=== PATIENT | male | born 1945 | race Caucasian/White ===

== ENCOUNTER → 2018-08-14 08:02 | Outpatient (CLI) | payer MEDICARE, SELFPAY ==
--- NOTE | 2018-08-14 08:30 | US_ITS ---
US abdomen limited History:Abdominal pain, epigastric pain with nausea Ordering Physician:Luis Scruggs MD Patient Age: 73 years Comparison:None Findings: Pancreas:Unremarkable. No obvious mass or abnormal fluid collection. No ductal dilatation Liver:There is a small hepatic cyst at 12 mm involving the central aspect of the liver. Right Kidney:Unremarkable. Normal size and echogenicity. No hydronephrosis Gallbladder: There is a small amount sludge within the gallbladder along with a a 2 mm polyp along the anterior wall . No shadowing stones. No gallbladder wall thickening, pericholecystic fluid, or ductal dilatation. Common bile duct is normal at 3 mm. IMPRESSION: 1. Small amount sludge and small 2 mm gallbladder wall polyp. No gallstones or gallbladder wall thickening. 2. Small hepatic cyst
--- NOTE | 2018-08-14 09:00 | FL_ITS ---
FL upper GI w air HISTORY: Pain and swelling of the stomach with nausea ITS.REASON: UPPER ABD PAIN ORDERING PHYSICIAN: Luis Scruggs MD PATIENT AGE: 73 years Comparison: None FINDINGS: The esophagus, stomach, and duodenum have an unremarkable appearance. There is no evidence of hiatal hernia. No ulcer or mass evident. No mucosal abnormalities apparent. There is normal peristalsis. The duodenal C-loop is nondisplaced. There was a mild amount of GE reflux noted during the exam FLUOROSCOPY TIME : 1 minute and 29 seconds. IMPRESSION: Mild gastroesophageal reflux otherwise negative upper GI
== END ==
PROVIDERS: PCP Family Medicine; Visit Provider Family Medicine
DX: R10.10 Upper abdominal pain, unspecified (principal)
CPT/HCPCS: 74247; 76705

== ENCOUNTER 2021-06-18 09:14 | Emergency (ER) | payer MEDICARE, SELFPAY ==
[2021-06-18 10:22] VITALS: BP 150/79; PULSE 75; RESP 14; TEMP 37; O2SAT 98; BMI 20.7
--- NOTE | 2021-06-18 10:43 | HMH.EDUTC ---
[facility] [place] Clinical Impression: Bronchitis Sinusitis Qualifiers: Sinusitis location: unspecified location Chronicity: acute Recurrence: non-recurrent Qualified Code(s): J01.90 - Acute sinusitis, unspecified Disposition: Home, Self-Care Condition on Discharge: Good Instructions: DI for Sinusitis, DI for Acute Bronchitis Additional Instructions: Drink plenty of fluids. Take tylenol or ibuprofen for pain or fever. Take the medications as directed. Follow up with your regular doctor. GO TO THE ER FOR ANY WORSENING SYMPTOMS Prescriptions: Benzonatate [Benzonatate 100mg cap] 100 mg PO TIDP PRN #30 cap PRN Reason: Cough Transmission Status: Received by [facility] # guaiFENesin [Mucinex 600mg tablet] 1 - 2 tab PO BIDP PRN #30 tab PRN Reason: Congestion Transmission Status: Received by [facility] # predniSONE [Prednisone 20mg Tab] 20 mg PO BID 3 Days #6 tab Transmission Status: Received by [facility] # Azithromycin [Z-Jasen 250mg Tab*] 250 mg PO UD DOSE PK #6 tab Transmission Status: Received by [facility] # Referrals: Luis Scruggs MD [Primary Care Provider] - Time of Disposition: 10:50 Medical Decision Making - Medical Records Medical records reviewed: No: I reviewed the patient's medical records. - Jaime Inquiry Pt receiving controlled substance: No Vital Signs: 06/18/21 10:22 06/18/21 11:04 Temperature 98.6 F 98.6 F Temperature Source Oral Pulse Rate 75 Pulse Rate [Left] 75 Respiratory Rate 14 14 Blood Pressure 150/79 H Blood Pressure [Right Arm] 150/79 H Blood Pressure Mean [Right Arm] 102 02 Sat by Pulse Oximetry 98 [facility] [place] - General Stated complaint: sore throat Time Seen by Provider: 06/18/21 10:43 Mode of Arrival: Ambulatory Source of Information: Patient Limitations: No Limitations Description of Symptoms (Recalled from Triage Doc. by RN): pt c/o congestion, JEREZ, and cough x3 days. HEENT Symptoms (Recalled from RN notes): Yes (congestion and JEREZ) Resp Symptoms (Recalled from RN notes): Yes (cough) Skin Symptoms (Recalled from RN notes): No MS Symptoms (Recalled from RN notes): No Functional Status (Recalled from RN notes): wnl - History of Present Illness Provider Complaint: He c/o cough and sinus congestion for the past 3 days. - Related Data Home Medications Medication Instructions Recorded Confirmed Aspirin 81 mg PO DAILY 02/17/18 02/17/18 Atorvastatin Calcium [Lipitor 10mg 5 mg PO DAILY 02/17/18 02/17/18 Tab] Previous Rx's Medication Instructions Recorded Azithromycin [Z-Jasen 250mg Tab*] 250 mg PO UD DOSE PK #6 tab 06/18/21 Benzonatate [Benzonatate 100mg 100 mg PO TIDP PRN #30 cap 06/18/21 cap] guaiFENesin [Mucinex 600mg tablet] 1 - 2 tab PO BIDP PRN #30 tab 06/18/21 predniSONE [Prednisone 20mg 20 mg PO BID 3 Days #6 tab 06/18/21 Tab] Allergies Allergy/AdvReac Type Severity Reaction Status Date / Time No Known Allergies Allergy Verified 02/17/18 15:45 - Worker's Comp Is this a Worker's Comp case?: No [facility] History - Hepatitis A Screen Drug use history?: No High risk sexual behaviors?: No History of sexually transmitted infection?: No Currently employed?: No Childcare worker?: No Do you have indoor plumbing?: Yes Do you have electricity?: Yes Attestation statement:: This patient has been screened for Hepatitis A risk factors. I have reviewed the patient's past medical history: Yes ROS Obtained: Yes All systems reviewed & no additional complaints - Constitutional Constitutional: Denies chills, Denies fever(s) - Eyes Eyes: Denies eye discharge - ENT Ears, Nose, Mouth, and Throat: Denies dizziness, Denies otalgia, Reports nasal congestion, Reports nasal discharge, Reports sore throat - Cardiovascular Cardiovascular: Denies chest pain - Respiratory Respiratory: Reports chest congestion, Reports cough, Denies dyspnea,
[2021-06-18 11:04] VITALS: BP 150/79; PULSE 75; RESP 14; TEMP 37
== END 2021-06-18 11:06 | disposition home or self-care (01) ==
PROVIDERS: Emergency Provider Nurse Practitioner Family; PCP Family Medicine
DX: J20.9 Acute bronchitis, unspecified (principal); J01.90 Acute sinusitis, unspecified
CPT/HCPCS: G0463; 99202

== ENCOUNTER → 2023-03-07 08:20 | Outpatient (POV) | payer MEDICARE, SELFPAY | PROVIDERS: Visit Provider Dermatology | DX: Z00.00 Encounter for general adult medical examination without abnormal findings (principal) ==

== ENCOUNTER 2023-10-13 19:21 | Emergency (ER) | payer MEDICARE, SELFPAY ==
[2023-10-13 19:25] VITALS: BP 140/83; PULSE 69; RESP 19; O2SAT 98; BMI 19.9
--- NOTE | 2023-10-13 19:32 | ED_ITS ---
Discharge Plan Disposition Patient Disposition: Home, Self-Care Condition: Good Prescriptions Prescriptions: New cephalexin 500 mg capsule 500 mg PO Q8H 10 Days Qty: 30 0RF No Action atorvastatin 10 MG tablet 5 mg PO DAILY aspirin 81 MG tablet,chewable 81 mg PO DAILY azithromycin 250 MG tablet 250 mg PO UD DOSE PK Qty: 6 0RF Rx Instructions: Take two (2) tablets today, then one (1) tablet days #2 thru #5 benzonatate 100 MG capsule 100 mg PO TIDP PRN (Reason: Cough) Qty: 30 0RF guaifenesin 600 MG tablet extended release 12hr 1 - 2 tab PO BIDP PRN (Reason: Congestion) Qty: 30 0RF prednisone 20 MG tablet 20 mg PO BID 3 Days Qty: 6 0RF Referrals Follow up/Referrals: Luis Scruggs MD [Primary Care Provider] - See instructions Clinical Impressions Clinical Impression: Puncture wound of hand, left, Skin tear of left hand without complication, On group home clopidogrel therapy Instructions Patient Instructions: DI for Laceration Repair-Skin Closure Strips Discharge ED Provider: Anabel Rodriguez [facility] [place] HPI General Stated complaint: AO 10/13/23 1730 Puncture to left hand Time Seen by Provider: 10/13/23 19:32 History of Present Illness Provider Complaint: Puncture wound to left hand a few hours [employer]. On Plavix and continues to ooze. Unsure of last tetanus shot. Onset (ago): hour(s) (3) Location: left and upper extremity Relieving factors: none Exacerbating factors: none Associated symptoms: denies other symptoms Treatments prior to arrival: other (pressure) Related Data Home Medications Medication Instructions Recorded Confirmed aspirin 81 mg chewable tablet 81 mg PO DAILY heart health 02/17/18 02/17/18 atorvastatin 10 mg tablet 5 mg PO DAILY Cholesterol 02/17/18 02/17/18 Previous Rx's Medication Instructions Recorded azithromycin 250 mg tablet 250 mg PO UD DOSE PK #6 tabs 06/18/21 benzonatate 100 mg capsule 100 mg PO TIDP PRN Cough #30 caps 06/18/21 guaifenesin 600 mg tablet, 1 - 2 tab PO BIDP PRN Congestion 06/18/21 extended release 12 hr #30 tabs prednisone 20 mg tablet 20 mg PO BID 3 days #6 tabs 06/18/21 cephalexin 500 mg capsule 500 mg PO Q8H 10 days #30 caps 10/13/23 Allergies Allergy/AdvReac Type Severity Reaction Status Date / Time No Known Allergies Allergy Verified 02/17/18 15:45 [facility] Disclaimer: The information contained in this section may have been updated after the patient was seen, as this information can be updated by other users. Social History Smoking Status: Never smoker alcohol intake: never current occupational status: retired Travel in the last 8 weeks: None ROS Obtained: Yes All systems reviewed & no additional complaints except as documented Integumentary/Breasts Skin/Breast: Reports system reviewed and no additional complaints, except as documented Physical Exam General General appearance: alert and in no apparent distress Chest Chest inspection: Present normal inspection and symmetric chest wall rise; Absent tenderness Respiratory Respiratory exam: Present normal lung sounds bilaterally; Absent respiratory distress Cardiovascular Cardiovascular exam: Present regular rate and normal rhythm; Absent JVD Extremities Exam Extremities exam: Present normal inspection, full ROM and normal capillary refill; Absent calf tenderness Expanded Upper Extremity Exam Left: Hand L/R back image: 2 1. skin tear Neurological Exam Neurological exam: Present alert and oriented X3 Psychiatric Psychiatric exam: Present normal affect and normal mood Skin Skin exam: Present warm, dry, intact and normal color Lymphatic Lymphatic Findings: no adenopathy Medical Decision Making Jaime Inquiry Pt receiving controlled substance: No Procedures Laceration Laceration 1: Site: hand Side (If applicable): left Size (cm): 1.0 Pre-repair: irrigated extensively Skin layer closed with: other (electrocautery, steri strips)
[2023-10-13] MEDS: TET/DIPHTH/PERT-ADULT 0.5ML SYRINGE 0.5 ML IM (19:45)
[2023-10-13 19:57] VITALS: BP 140/83; PULSE 69; RESP 19; TEMP 36.7; O2SAT 98
--- NOTE | 2023-10-13 20:11 | PC.NURSE ---
DRY DRESSING APPLIED TO LEFT HAND
== END 2023-10-13 20:12 | disposition home or self-care (01) ==
PROVIDERS: Emergency Provider Physician Assistant; PCP Family Medicine
DX: S61.402A Unspecified open wound of left hand, initial encounter (principal); S61.432A Puncture wound without foreign body of left hand, initial encounter; Z79.01 Long term (current) use of anticoagulants; X58.XXXA Exposure to other specified factors, initial encounter; Z86.73 Personal history of transient ischemic attack (TIA), and cerebral infarction without residual deficits; Z23 Encounter for immunization
CPT/HCPCS: 90471; 90715; 99212; 99214; G0463

== ENCOUNTER 2023-10-24 10:39 | Outpatient (POV) | payer MEDICARE, SELFPAY | END 2023-10-24 23:59 | disposition home or self-care (01) | LOC: SC 10:40 | PROVIDERS: PCP Family Medicine; Visit Provider Dermatology | DX: Z00.00 Encounter for general adult medical examination without abnormal findings (principal) ==

== ENCOUNTER 2023-12-20 10:51 | Outpatient (CLI) | payer MEDICARE, SELFPAY ==
--- NOTE | 2023-12-20 10:57 | XR_ITS ---
FINAL REPORT CLINICAL HISTORY: LBP COMPARISON: None FINDINGS: 5 views of the lumbar spine were obtained. There is no evidence of fracture or dislocation. There is mild rightward curvature of the lumbar spine. Moderate degenerative change with osteophytes is present. Vacuum phenomenon is present at the L4-5 and L5-S1 levels. No paraspinous soft tissue abnormalities identified. IMPRESSION: No acute bony abnormality. Moderate degenerative changes present as described, with mild rightward curvature of the lumbar spine. Reviewed, Interpreted and Dictated by Anselmo Carpenter III, MD Transcribed by Viridiana Andres Authenticated and [facility]
== END 2023-12-20 23:59 | disposition home or self-care (01) ==
LOC: RAD 10:52
PROVIDERS: PCP Family Medicine; Visit Provider Family Medicine
DX: M54.9 Dorsalgia, unspecified (principal)
CPT/HCPCS: 72110

== ENCOUNTER 2023-12-27 07:27 | Outpatient (CLI) | payer MEDICARE, SELFPAY ==
--- NOTE | 2023-12-27 07:29 | US_ITS ---
FINAL REPORT CLINICAL HISTORY: Abdominal pain, nausea, and gas for 6 months COMPARISON: None FINDINGS: Sonographic images of the abdomen were obtained. The liver has an unremarkable appearance with normal echogenicity. The gallbladder has an unremarkable appearance without evidence of gallstones. There is no evidence of biliary ductal dilatation. The common hepatic duct measures 5 mm, which is within normal limits. Limited images of the pancreas are unremarkable. The spleen size is normal. The right kidney measures 10.4 cm in length. The left kidney measures 11.9 cm in length. There are several left renal cysts, largest measuring 1.5 cm. There is no evidence of hydronephrosis. The aorta has an unremarkable appearance. Limited images of the inferior vena cava are unremarkable. IMPRESSION: Left renal cysts measuring up to 1.5 cm. Reviewed, Interpreted and Dictated by Anselmo Carpenter III, MD Transcribed by Dana Krishnamruthy Authenticated and [facility]
== END 2023-12-27 23:59 | disposition home or self-care (01) ==
LOC: RAD 07:27
PROVIDERS: PCP Family Medicine; Visit Provider Family Medicine
DX: R10.9 Unspecified abdominal pain (principal)
CPT/HCPCS: 76700

== ENCOUNTER 2024-01-08 08:15 | Outpatient (CLI) | payer MEDICARE, SELFPAY ==
--- NOTE | 2024-01-08 08:22 | FL_ITS ---
FINAL REPORT CLINICAL HISTORY: abd pain ft 3:00 dap 95.74 FINDINGS: UPPER GI WITH SBFT HISTORY: Epigastric pain with gastroesophageal reflux disease. PROCEDURE: The patient ingested barium. Effervescent crystals were also administered. Spot and overhead films were obtained. Additional barium was administered for a SBFT. Number of images: 42 Fluoro time: 3 minutes 0 seconds DAP: 95.74 uGym2. FINDINGS: UGI: The esophagus is normal. There is no hiatal hernia. A 13 mm barium tablet passes through the esophagus into the stomach without delay. There is no gastroesophageal reflux. Peristalsis is normal. Rugal folds of the stomach appear normal. The duodenal bulb is normal. SBFT: The nozzle worker film is normal. There is no evidence of obstruction. The mucosal fold pattern is normal. The terminal ilium is normal. IMPRESSION: Unremarkable upper GI with small bowel follow-through. Films reviewed , interpreted and dictated by Dr. Cazares. Transcribed by Jac Barahona PA-C. Reviewed, Interpreted and Dictated by Francisco J Cazares MD Transcribed by SHARON Bundy Authenticated and [facility]
[2024-01-08] MEDS: BARIUM SULFATE(LIQUID E-Z-PAQUE);355ML BOTTLE 355 ML PO (10:02)
[2024-01-08] MEDS: E-Z-GASII EFFERVESCENT GRANULES;1PK 1 EACH PO (10:02)
[2024-01-08] MEDS: BARIUM SULFATE (E-Z-HD 340GM);135ML BOTTLE 135 ML PO (10:02)
== END 2024-01-08 23:59 | disposition home or self-care (01) ==
LOC: RAD 08:15
PROVIDERS: PCP Family Medicine; Visit Provider Family Medicine
DX: R10.9 Unspecified abdominal pain (principal)
CPT/HCPCS: 74246; 74248

== ENCOUNTER 2024-11-29 20:18 | Emergency (ER) | payer MEDICARE, SELFPAY ==
[2024-11-29 20:28] VITALS: BP 127/63; PULSE 59; RESP 18; TEMP 36.3; O2SAT 97; BMI 20.3
[2024-11-29 20:30] VITALS: BP 109/59; PULSE 57; O2SAT 97
--- NOTE | 2024-11-29 20:37 | CT_ITS ---
PROCEDURE INFORMATION: Exam: CT Maxillofacial Without Contrast Exam date and time: 11/29/2024 8:57 PM Age: 79 years old Clinical indication: Injury or trauma; Other: Barn door with latch hit face, L jaw pain TECHNIQUE: Imaging protocol: Computed tomography of the face without contrast. Radiation optimization: All CT scans at this facility use at least one of these dose optimization techniques: automated exposure control; mA and/or kV adjustment per patient size (includes targeted exams where dose is matched to clinical indication); or iterative reconstruction. COMPARISON: CT HEAD/BRAIN WO CON 29/11/2024 20:53 FINDINGS: Paranasal sinuses: No air-fluid levels. Orbital cavities: Orbits are normal. Globes are unremarkable. Bones: Chronic right zygomatic process deformity. Severe spinal stenosis at C1 with possible cord impingement. Soft tissues: The left masseter muscle is larger than the right and appears swollen. IMPRESSION: 1. The left masseter muscle is larger than the right and appears swollen. There could be hematoma in the muscle. 2. Severe spinal stenosis at C1 with possible cord impingement. If there are correlating neurological signs clinically, consider MRI to evaluate the cord.
--- NOTE | 2024-11-29 20:37 | CT_ITS ---
PROCEDURE INFORMATION: Exam: CT Head Without Contrast Exam date and time: 11/29/2024 8:53 PM Age: 79 years old Clinical indication: Injury or trauma; Other: Barn door with latch hit face, L jaw pain TECHNIQUE: Imaging protocol: Computed tomography of the head without contrast. Radiation optimization: All CT scans at this facility use at least one of these dose optimization techniques: automated exposure control; mA and/or kV adjustment per patient size (includes targeted exams where dose is matched to clinical indication); or iterative reconstruction. COMPARISON: CT - HEADWO CT head/brain wo con 10/22/2017 15:52 FINDINGS: Brain: Moderate chronic brain volume loss and chronic small vessel ischemic changes. Cerebral ventricles: No ventriculomegaly. Paranasal sinuses: Mild mucosal thickening in the paranasal sinuses. Mastoid air cells: Visualized mastoid air cells are well aerated. Bones: Severe spinal stenosis with possible cord impingement in the upper cervical spine. Soft tissues: Unremarkable. IMPRESSION: 1. No acute intracranial findings. 2. Severe spinal stenosis with possible cord impingement in the upper cervical spine.
[2024-11-29] MEDS: TET/DIPHTH/PERT-ADULT 0.5ML SYRINGE 0.5 ML IM (21:03)
[2024-11-29] MEDS: BACITRACIN OINT 0.9GM UDP 1 EACH TP (21:04)
--- NOTE | 2024-11-29 21:37 | [facility].EDGENADL ---
Discharge Plan Disposition Patient Disposition: Home, Self-Care Condition: Good Prescriptions Prescriptions: New bacitracin 500 unit/gram ointment 1 applic topical BID Qty: 30 0RF No Action atorvastatin 10 MG tablet 5 mg PO DAILY aspirin 81 MG tablet,chewable 81 mg PO DAILY azithromycin 250 MG tablet 250 mg PO UD DOSE PK Qty: 6 0RF Rx Instructions: Take two (2) tablets today, then one (1) tablet days #2 thru #5 benzonatate 100 MG capsule 100 mg PO TIDP PRN (Reason: Cough) Qty: 30 0RF guaifenesin 600 MG tablet extended release 12hr 1 - 2 tab PO BIDP PRN (Reason: Congestion) Qty: 30 0RF prednisone 20 MG tablet 20 mg PO BID 3 Days Qty: 6 0RF cephalexin 500 mg capsule 500 mg PO Q8H 10 Days Qty: 30 0RF Referrals Follow up/Referrals: Luis Scruggs MD [Primary Care Provider] - See instructions Activity Restrictions/Add. Instructions Additional Instructions/Restrictions: You were evaluated in the emergency department today. You have an avulsion of skin of your face, so there was nothing that can be sutured or glued here today. Please keep your wound clean and dry. Once it is completely healed, apply sunscreen to help minimize scarring. Follow-up with your primary care provider for a wound recheck. You were incidentally found to have cervical spinal stenosis on CT scan, for which you may follow-up with outpatient primary care provider. Return to the emergency department for new or worsening symptoms Clinical Impressions Clinical Impression: Avulsion of skin of face, Cervical spinal stenosis, Facial hematoma Instructions Patient Instructions: DI for Avulsion Laceration (Not Requiring Sutures) Print Language Print Language: Frisian Discharge ED Provider: Maria Isabel Pate General Adult HPI General Chief complaint: Wound/Laceration Stated complaint: hit in lft cheek by barn door, bleeding Time Seen by Provider: 11/29/24 20:24 Mode of Arrival: Ambulatory Source of Information: Patient Description of Symptoms (Recalled from ER Triage Doc. by RN): patient states he was closing a barn door and the wind caught the door and the latch hit him in the left cheek. small laceration noted. History of Present Illness HPI narrative: This patient is a 79-year-old male with a history of cardiovascular disease on aspirin, hyperlipidemia presenting to the emergency department for evaluation with concern for an injury to his left lower face. He reports that he was closing a barn door when the wind caught the door, swinging it open and hitting him in the left lower face. This happened today prior to arrival. He had wound with bleeding. He also has some complaints of left jaw pain when opening and closing his mouth. He did not lose consciousness. No fall to the ground. No trauma elsewhere. He was well prior to this. He is unsure when his last tetanus shot was Related Data Home Medications ?Medication ?Instructions ?Recorded ?Confirmed aspirin 81 mg chewable tablet 81 mg PO DAILY heart health 02/17/18 02/17/18 atorvastatin 10 mg tablet 5 mg PO DAILY Cholesterol 02/17/18 02/17/18 Previous Rx's ?Medication ?Instructions ?Recorded azithromycin 250 mg tablet 250 mg PO UD DOSE PK #6 tabs 06/18/21 benzonatate 100 mg capsule 100 mg PO TIDP PRN Cough #30 caps 06/18/21 guaifenesin 600 mg tablet, 1 - 2 tab PO BIDP PRN Congestion 06/18/21 extended release 12 hr #30 tabs prednisone 20 mg tablet 20 mg PO BID 3 days #6 tabs 06/18/21 cephalexin 500 mg capsule 500 mg PO Q8H 10 days #30 caps 10/13/23 bacitracin 500 unit/gram topical 1 applic topical BID #30 grams 11/29/24 ointment Allergies Allergy/AdvReac Type Severity Reaction Status Date / Time No Known Allergies Allergy Verified 02/17/18 15:45 [facility] Disclaimer: The information contained in this section may have been updated after the patient was seen, as this information can be updated by other users. Social History Smoking Status: Never smoker alcohol intake: never current occupational status: retired Travel in the last 8 weeks?: None Have you lived/traveled outside [place] in past 30 days?: No Contact w/someone who lives/traveled outside [place] past 30 days?: No Exposure to someone with infectious disease in past 14 days?: No Do you have a fever (greater than 100.4 F or 38 C)?: No Have you tested positive for COVID-19?: No Exposed to someone with COVID-19 in past 14 days?: No Do you have a sore throat?: No Do you have a cough?: No Do you have any weakness?: No Do you have any diarrhea?: No Are you experiencing any unusual bleeding?: No Do you have any muscle aches/pain?: No Do you have any abdominal pain?: No Are you experiencing loss of taste or smell?: No ROS Obtained: Yes All systems reviewed & no additional complaints except as documented Physical Exam General General appearance: alert and in no apparent distress Head Head exam: normocephalic Expanded Head Exam Head image: 1. 3 cm irregular skin avulsion with small underlying hematoma. Comment: No trismus, no obvious palpable bony abnormality of the jaw. No loose teeth Eye Eye exam: Present normal appearance, PERRL and EOMI ENT ENT exam: Present normal exam, normal oropharynx, mucous membranes moist and normal external ear exam Neck Neck exam: Present normal inspection, full ROM and trachea midline; Absent tenderness Chest Chest inspection: Present normal inspection and symmetric chest wall rise; Absent tenderness Respiratory Respiratory exam: Present normal lung sounds bilaterally; Absent respiratory distress, wheezes, stridor or accessory muscle use Cardiovascular Cardiovascular exam: Present regular rate and normal rhythm Abdominal Exam Abdominal exam: Present soft; Absent distention, tenderness or guarding Extremities Exam Extremities exam: Present normal inspection, full ROM and normal capillary refill; Absent tenderness or edema Back Exam Back exam: Present normal inspection and full ROM; Absent tenderness Neurological Exam Neurological exam: Present alert, oriented X3, CN II-XII intact and normal gait; Absent motor sensory deficit Psychiatric Psychiatric exam: Present normal affect and normal mood Skin Skin exam: Present warm and dry Medical Decision Making Medical Records Medical records reviewed: Yes I reviewed the patient's medical records. Screening: Per USPSTF and CDC recommendations, given the prevalence of disease in our region, it is our hospital?s policy to screen for HIV and viral Hepatitis for all patients aged 18 and over and those with ongoing risk factors. Jaime Inquiry Pt receiving controlled substance: No Vital Signs: 11/29/24 20:28 11/29/24 20:30 11/29/24 22:10 Temperature 97.3 F L Temperature Source Oral Pulse Rate 57 L 57 L Pulse Rate [Right] 59 L Respiratory Rate 18 17 Blood Pressure 109/59 L 134/80 Blood Pressure [Right Arm] 127/63 Blood Pressure Mean 98 Blood Pressure Mean [Right Arm] 84 Blood Pressure Source Blood Pressure Source [Right Arm] Automatic Cuff Blood Pressure Position Blood Pressure Position [Right Arm] Sitting 02 Sat by Pulse Oximetry 97 97 98 Oxygen Delivery Method Room Air 11/29/24 22:14 Temperature 97.9 F Temperature Source Oral Pulse Rate 74 Pulse Rate [Right] Respiratory Rate 16 Blood Pressure 134/80 Blood Pressure [Right Arm] Blood Pressure Mean Blood Pressure Mean [Right Arm] Blood Pressure Source Automatic Cuff Blood Pressure Source [Right Arm] Blood Pressure Position Supine Blood Pressure Position [Right Arm] 02 Sat by Pulse Oximetry Oxygen Delivery Method Room Air Lab Data Lab results reviewed: Yes I reviewed the patient's lab results. Orders (Tests/Meds): ED MEDICATIONS Discontinued Medications Generic Name Dose Route Start Last Admin Trade Name Freq PRN Reason Stop Dose Admin Bacitracin 1 each 11/29/24 20:39 11/29/24 21:04 Bacitracin Oint 0.9gm Udp TP 11/29/24 20:40 1 each ONCE ONE Administration Tetanus/Reduced Diphtheria/Acell Pertussis 0.5 ml 11/29/24 20:38 11/29/24 21:03 Tet/Diphth/Pert-Adult 0.5ml Syringe IM 11/29/24 20:39 0.5 ml .ONCE ONE Administration ORDERS Category Date Time Status CT facial bones wo con Stat Cat Scan 11/29/24 20:[address] head/brain wo con Stat Cat Scan 11/29/24 20:37 Completed Medical Decision Narrative: In summary, this patient is a 79-year-old male presenting to the Emergency Department for evaluation of injury to the left lower face after a barn door swung open and hit him. Differential diagnoses considered include but are not limited to laceration, abrasion, skin avulsion, jaw fracture, closed head injury. Ruling out the most morbid conditions drove assessment. It should be noted patient's history includes cardiovascular disease on aspirin which is reportedly at goal therapy. This complicates all aspects of care by increasing patient's risk for morbidity. On exam, the patient is sitting upright in no acute distress and is neurologically intact. He has a skin avulsion to the left lower face with underlying hematoma. He has left jaw pain when opening and closing his mouth. Workup included CT head and face without IV contrast. His wound was cleaned with Betadine, covered with bacitracin, and a nonadherent Xeroform dressing. He tolerated this well. There was unfortunately nothing that I could approximate given the skin was just avulsed. Tdap booster was administered. I independently interpreted CT scans prior to the radiologist read and noted facial hematoma without obvious fracture, no intracranial hemorrhage. Please see their read for final interpretation. They also noted concern for severe cervical spinal stenosis and neural foraminal stenosis, which the patient states he is already aware of and he takes Aleve at home for this. Wound was cleaned with Betadine, dressed with bacitracin, Xeroform, and sterile dressing. At this time, he was deemed to be appropriate for discharge home with instructions for wound care and supportive management. Strict return precautions given. Critical Care Critical Care Time Critical Care Time: No
[2024-11-29 22:10] VITALS: BP 134/80; PULSE 57; RESP 17; O2SAT 98
[2024-11-29 22:14] VITALS: BP 134/80; PULSE 74; RESP 16; TEMP 36.6; O2SAT 96
== END 2024-11-29 22:17 | disposition home or self-care (01) ==
PROVIDERS: Emergency Provider Emergency Medicine; PCP Family Medicine
DX: S01.80XA Unspecified open wound of other part of head, initial encounter (principal); R68.84 Jaw pain; M48.02 Spinal stenosis, cervical region; W22.8XXA Striking against or struck by other objects, initial encounter
CPT/HCPCS: 70450; 70486; 90471; 90715; 99285